=== PATIENT | female | born 1945 | race Caucasian/White ===

== ENCOUNTER → 2016-12-17 | Outpatient (REF) | payer MEDICARE, OTHER, MEDICAID ==
[2016-12-17 12:36] LABS: BASO # 0.1 10^3/uL (0.0-0.2); BASO % 0.8 % (0.0-1.0); EOS # 0.3 10^3/uL (0.0-0.50); EOS % 3.3 % (0.0-3.0); IMMATURE GRANULOCYTE % 0.3 % (0-0); LYMPH # 1.9 10^3/uL (1.5-4.5); LYMPH % 23.6 % (24.0-44.0); MEAN CORPUSCULAR HEMOGLOBIN 28.4 pg (27.0-33.0); MEAN CORPUSCULAR HGB CONC 31.7 g/dl (32.0-36.5); MEAN CORPUSCULAR VOLUME 89.5 fl (80.0-96.0); MONO # 0.7 10^3/uL (0.0-0.8); MONO % 8.6 % (0.0-5.0); NEUTROPHILS % 63.4 % (36.0-66.0); PLATELET COUNT, AUTOMATED 252 10^3/uL (150-450); RED CELL DISTRIBUTION WIDTH 13.1 % (11.5-14.5); WHITE BLOOD COUNT 7.9 10^3/uL (4.0-10.0)
[2016-12-17 12:48] LABS: ALBUMIN 3.7 GM/DL (3.2-5.2); ALBUMIN/GLOBULIN RATIO 0.97 (1.00-1.93); ALKALINE PHOSPHATASE 78 U/L (45-117); ALT/SGPT 22 U/L (12-78); ANION GAP 5 MEQ/L (8-16); AST/SGOT 17 U/L (15-37); BILIRUBIN,TOTAL 0.7 MG/DL (0.2-1.0); BLOOD UREA NITROGEN 11 MG/DL (7-18); CALCIUM LEVEL 9.1 MG/DL (8.8-10.2); CARBON DIOXIDE LEVEL 32 MEQ/L (21-32); CHLORIDE LEVEL 104 MEQ/L (98-107); CREATININE FOR GFR 0.55 MG/DL (0.55-1.02); GLOMERULAR FILTRATION RATE > 60.0 (>39); GLUCOSE, FASTING 88 MG/DL (83-110); POTASSIUM SERUM 4.2 MEQ/L (3.5-5.1); SODIUM LEVEL 141 MEQ/L (136-145); TOTAL PROTEIN 7.5 GM/DL (6.4-8.2)
== END ==
LOC: M SFHCPLAZ 08:38
PROVIDERS: ATTEND Obstetrics & Gynecology
DX: Z00.00 Encounter for general adult medical examination without abnormal findings (principal); Z79.899 Other long term (current) drug therapy

== ENCOUNTER → 2017-01-06 | Outpatient (CLI) | payer MEDICARE, OTHER, MEDICAID ==
--- NOTE | 2017-01-06 09:16 | REP ---
BILATERAL SCREENING DIGITAL MAMMOGRAM: There are no palpable abnormalities or other breast complaints. The patient states that she/he has not had a clinical breast exam in over a year. COMPARISON: 09/28/2011 There is mildly dense heterogeneous breast parenchyma that could obscure a lesion. There are benign calcifications. There has been no interval development of masses, areas of structural distortion or clusters of microcalcifications typical of malignancy. IMPRESSION: There is no evidence of malignancy. BIRADS category 2 benign findings. The patient should have a repeat mammogram in 1 year. BI-RADS/ACR category 2 mammogram. Benign findings. This mammogram was interpreted with the aid of an FDA-approved computer-aided detection system. A. Negative x-ray reports should not delay biopsy if a dominant or clinically suspicious mass is present. B. Not all breast cancers are not identified by x-ray. C. Adenosis and dense breasts may obscure an underlying neoplasm. Patient letter M1
== END ==
LOC: M WHC 07:51
PROVIDERS: ATTEND Family Medicine
DX: Z12.31 Encounter for screening mammogram for malignant neoplasm of breast (principal)

== ENCOUNTER → 2017-12-27 | Outpatient (CLI) | payer MEDICARE, OTHER, MEDICAID | LOC: M WHC 10:39 | DX: Z12.31 Encounter for screening mammogram for malignant neoplasm of breast (principal); Z78.0 Asymptomatic menopausal state | CPT/HCPCS: 77067 ==

== ENCOUNTER 2019-01-15 14:28 | Emergency (ER) | payer MEDICARE, MEDICAID ==
[~2019-01-15] VITALS: Ht 160 cm; Wt 71.7 kg
[2019-01-15] MEDS ORDERED: TIMO0.5S29 (14:37)
[2019-01-15] MEDS ORDERED: REST0.05 (14:37)
--- NOTE | 2019-01-15 15:29 | REP ---
Right scapula: Two views. History: Injury in a fall. No comparison radiographs. Findings: There is moderate osteoarthritic hypertrophy at the acromioclavicular joint. Mild spurring is seen in the glenohumeral articulation. Glenohumeral and acromioclavicular joints are normally aligned. No scapular or clavicular or humeral fracture is seen. There are however rib fractures on the right posteriorly involving rib numbers 4, 5, 6, and 7. The 6th and 7th rib fractures appear to be old. The 4th and 5th rib fractures are indeterminate. This should be correlated with clinical signs and symptoms and areas of tenderness. Impression: No scapular or shoulder fracture seen. Acromioclavicular osteoarthritis. Rib fractures including right 4th-7th ribs. Right 6th and 7th rib fractures have a old appearance. I cannot exclude acute 4th and 5th right posterolateral rib fractures. Correlate with areas of tenderness. Electronically Signed by Curly Monte MD 01/15/2019 06:51 P
[2019-01-15] MEDS ORDERED: NORC1TAB7 PO (16:49)
[2019-01-15 16:55] VITALS: BP 147/73
== END 2019-01-15 16:58 | disposition home or self-care (01) ==
LOC: M ED 14:28
DX: S22.41XA Multiple fractures of ribs, right side, initial encounter for closed fracture (principal); W10.8XXA Fall (on) (from) other stairs and steps, initial encounter; Y92.89 Other specified places as the place of occurrence of the external cause; Z79.899 Other long term (current) drug therapy

== ENCOUNTER → 2019-02-23 | Outpatient (CLI) | payer MEDICARE, OTHER, MEDICAID ==
[~2019-02-23] MED LIST: NORC1TAB7 PO; REST0.05; TIMO0.5S29
--- NOTE | 2019-02-23 12:09 | REPMRS ---
Patient History The patient states she has not had a clinical breast exam in over a year. No known family history of cancer. No Hormone Replacement Therapy 3D TOMOSYNTHESIS WAS PERFORMED. [facility] lifetime risk for [facility] 4.4%. Digital Woman Screen Mammo: February 23, 2019 - Exam #: [id number] Bilateral CC and MLO view(s) were taken. Technologist: Chelle Jiménez, Technologist Prior study comparison: December 27, 2017, bilateral digital woman screen mammo performed at [facility]. January 06, 2017, digital woman screen mammo performed at [facility]. FINDINGS: There are scattered fibroglandular densities. There has been no change in the appearance of the mammogram from the prior studies. There is a mild amount of residual fibroglandular tissue which is fairly symmetric. There is no interval development of dominant mass, architectural distortion, or clustered microcalcification suggestive of malignancy. Assessment: BI-RADS/ACR category 1 mammogram. Negative Mammogram. Recommendation Routine screening mammogram in 1 year (for women over age 40). This mammogram was interpreted with the aid of an FDA-approved computer-aided dectection system. Electronically Signed By: Cj Croft MD 02/23/19 [id number]
== END ==
LOC: M WHC 10:44
PROVIDERS: ATTEND Obstetrics & Gynecology
DX: Z12.31 Encounter for screening mammogram for malignant neoplasm of breast (principal)

== ENCOUNTER → 2021-02-19 | Outpatient (CLI) | payer MEDICARE, MEDICAID ==
[2021-02-19 17:12] LABS: BASO # 0.1 10^3/uL (0.0-0.2); EOS # 0.3 10^3/uL (0.0-0.5); EOS % 3.3 % (0.0-3.0); LYMPH # 2.1 10^3/uL (1.5-5.0); LYMPH % 24.2 % (24.0-44.0); MEAN CORPUSCULAR HEMOGLOBIN 27.6 pg (27.0-33.0); MEAN CORPUSCULAR HGB CONC 31.1 g/dl (32.0-36.5); MEAN CORPUSCULAR VOLUME 88.8 fl (80.0-96.0); MONO # 0.8 10^3/uL (0.0-0.8); MONO % 9.6 % (2.0-8.0); NEUTROPHILS # 5.3 10^3/uL (1.5-8.5); NEUTROPHILS % 61.6 % (36.0-66.0); PLATELET COUNT, AUTOMATED 239 10^3/uL (150-450); RED BLOOD COUNT 5.07 10^6/uL (4.00-5.40); WHITE BLOOD COUNT 8.7 10^3/uL (4.0-10.0)
[2021-02-19 17:15] LABS: HEMOGLOBIN A1c 5.7 %
[2021-02-19 17:21] LABS: ALBUMIN 3.5 GM/DL (3.2-5.2); ALT/SGPT 20 U/L (12-78); BILIRUBIN,TOTAL 0.5 MG/DL (0.2-1.0); BLOOD UREA NITROGEN 17 MG/DL (7-18); CALCIUM LEVEL 10.1 MG/DL (8.8-10.2); CARBON DIOXIDE LEVEL 32 MEQ/L (21-32); CHLORIDE LEVEL 107 MEQ/L (98-107); CHOLESTEROL LEVEL 238 MG/DL (<200); GLOMERULAR FILTRATION RATE > 60.0 (>39); GLUCOSE, FASTING 108 MG/DL (70-100); HDL CHOLESTEROL 35 MG/DL (>40); LDL CHOLESTEROL 137 MG/DL (<100); NON-HDL-C 203 MG/DL; POTASSIUM SERUM 4.4 MEQ/L (3.5-5.1); SODIUM LEVEL 143 MEQ/L (136-145); TOTAL PROTEIN 7.7 GM/DL (6.4-8.2); TRIGLYCERIDES LEVEL 332 MG/DL (<150)
[2021-02-19 17:32] LABS: TOTAL 25(OH) VITAMIN D 29.6 NG/ML (30.0-100.0)
== END ==
LOC: M PLALAB 14:24
PROVIDERS: ATTEND Student in an Organized Health Care Education/Training Program
DX: M16.11 Unilateral primary osteoarthritis, right hip (principal); M25.551 Pain in right hip; Z79.899 Other long term (current) drug therapy

== ENCOUNTER → 2022-02-25 | Outpatient (CLI) | payer MEDICARE, MEDICAID ==
[2022-02-25 13:35] LABS: BASO # 0.1 10^3/uL (0.0-0.2); BASO % 0.8 % (0.0-1.0); EOS # 0.3 10^3/uL (0.0-0.5); HEMATOCRIT 46.7 % (36.0-47.0); HEMOGLOBIN 14.3 g/dl (12.0-15.5); LYMPH # 1.6 10^3/uL (1.5-5.0); LYMPH % 18.3 % (24.0-44.0); MEAN CORPUSCULAR HEMOGLOBIN 27.7 pg (27.0-33.0); MEAN CORPUSCULAR HGB CONC 30.6 g/dl (32.0-36.5); MEAN CORPUSCULAR VOLUME 90.5 fl (80.0-96.0); MONO # 0.7 10^3/uL (0.0-0.8); MONO % 8.1 % (2.0-8.0); NEUTROPHILS % 69.3 % (36.0-66.0); PLATELET COUNT, AUTOMATED 231 10^3/uL (150-450); RED BLOOD COUNT 5.16 10^6/uL (4.00-5.40); WHITE BLOOD COUNT 8.6 10^3/uL (4.0-10.0)
[2022-02-25 14:08] LABS: ALBUMIN 3.5 G/DL (3.2-5.2); ALKALINE PHOSPHATASE 79 U/L (46-116); ALT/SGPT 16 U/L (7.0-40); AST/SGOT 19 U/L (<34); BILIRUBIN,TOTAL 0.8 MG/DL (0.3-1.2); BLOOD UREA NITROGEN 15 MG/DL (9-23); CALCIUM LEVEL 9.2 MG/DL (8.3-10.6); CARBON DIOXIDE LEVEL 31 MMOL/L (20-31); CHLORIDE LEVEL 103 MMOL/L (98-107); CHOLESTEROL LEVEL 235 MG/DL (<200); CHOLESTEROL RISK RATIO 5.52 (<5); CREATININE FOR GFR 0.58 MG/DL (0.55-1.30); GLOMERULAR FILTRATION RATE > 60.0 (>39); GLUCOSE, FASTING 89 MG/DL (74-106); HDL CHOLESTEROL 42.5 MG/DL (>40); LDL CHOLESTEROL 152.7 MG/DL (<100); NON-HDL-C 193 MG/DL; POTASSIUM SERUM 4.3 MMOL/L (3.5-5.1); SODIUM LEVEL 140 MMOL/L (136-145); TOTAL PROTEIN 7.4 G/DL (5.7-8.2); TRIGLYCERIDES LEVEL 199 MG/DL (<150)
== END ==
LOC: M PLALAB 10:39
PROVIDERS: ATTEND Student in an Organized Health Care Education/Training Program
DX: Z00.00 Encounter for general adult medical examination without abnormal findings (principal)

== ENCOUNTER → 2023-09-13 | Outpatient (CLI) | payer MEDICARE, MEDICAID ==
[~2023-09-13] MED LIST changes: +TIMO0.5S20; -TIMO0.5S29
[2023-09-13 13:54] LABS: BASO # 0.1 10^3/uL (0.0-0.2); EOS # 0.2 10^3/uL (0.0-0.5); EOS % 3.5 % (0.0-3.0); HEMATOCRIT 47.2 % (36.0-47.0); LYMPH # 1.6 10^3/uL (1.5-5.0); LYMPH % 23.6 % (24.0-44.0); MEAN CORPUSCULAR HGB CONC 31.8 g/dl (32.0-36.5); MEAN CORPUSCULAR VOLUME 88.2 fl (80.0-96.0); MONO # 0.5 10^3/uL (0.0-0.8); NEUTROPHILS # 4.3 10^3/uL (1.5-8.5); NEUTROPHILS % 63.6 % (36.0-66.0); PLATELET COUNT, AUTOMATED 245 10^3/uL (150-450); RED BLOOD COUNT 5.35 10^6/uL (4.00-5.40); WHITE BLOOD COUNT 6.8 10^3/uL (4.0-10.0)
[2023-09-13 14:00] LABS: ALBUMIN 3.7 G/DL (3.2-5.2); ALKALINE PHOSPHATASE 82 U/L (46-116); ALT/SGPT 16 U/L (7.0-40); AST/SGOT 10 U/L (<34); BILIRUBIN,TOTAL 0.8 MG/DL (0.3-1.2); BLOOD UREA NITROGEN 16 MG/DL (9-23); CALCIUM LEVEL 9.7 MG/DL (8.3-10.6); CARBON DIOXIDE LEVEL 31 MMOL/L (20-31); CHLORIDE LEVEL 106 MMOL/L (98-107); CHOLESTEROL LEVEL 254 MG/DL (<200); CHOLESTEROL RISK RATIO 6.58 (<5); CREATININE FOR GFR 0.57 MG/DL (0.55-1.30); GLOMERULAR FILTRATION RATE > 60.0 (>39); GLUCOSE, FASTING 94 MG/DL (74-106); HDL CHOLESTEROL 38.6 MG/DL (>40); LDL CHOLESTEROL 171.8 MG/DL (<100); NON-HDL-C 215.4 MG/DL; POTASSIUM SERUM 4.4 MMOL/L (3.5-5.1); SODIUM LEVEL 140 MMOL/L (136-145); TOTAL PROTEIN 7.5 G/DL (5.7-8.2); TRIGLYCERIDES LEVEL 218 MG/DL (<150)
== END ==
LOC: M PLALAB 10:55
PROVIDERS: ATTEND Student in an Organized Health Care Education/Training Program
DX: Z00.00 Encounter for general adult medical examination without abnormal findings (principal); Z79.899 Other long term (current) drug therapy

== ENCOUNTER → 2023-12-07 | Outpatient (CLI) | payer MEDICARE, MEDICAID | LOC: M PLAIMG 12:00 | PROVIDERS: ATTEND Student in an Organized Health Care Education/Training Program | DX: M51.37 Other intervertebral disc degeneration, lumbosacral region (principal); R29.898 Other symptoms and signs involving the musculoskeletal system ==

== ENCOUNTER → 2023-12-28 | Outpatient (CLI) | payer MEDICARE, MEDICAID ==
[2023-12-28 15:35] LABS: BASO # 0.1 10^3/uL (0.0-0.2); BASO % 0.9 % (0.0-1.0); EOS # 0.2 10^3/uL (0.0-0.5); EOS % 2.4 % (0.0-3.0); HEMATOCRIT 44.9 % (36.0-47.0); HEMOGLOBIN 14.1 g/dl (12.0-15.5); LYMPH # 1.8 10^3/uL (1.5-5.0); LYMPH % 20.6 % (24.0-44.0); MEAN CORPUSCULAR HEMOGLOBIN 28.4 pg (27.0-33.0); MEAN CORPUSCULAR HGB CONC 31.4 g/dl (32.0-36.5); MEAN CORPUSCULAR VOLUME 90.3 fl (80.0-96.0); MONO # 0.8 10^3/uL (0.0-0.8); MONO % 9.1 % (2.0-8.0); NEUTROPHILS # 5.8 10^3/uL (1.5-8.5); NEUTROPHILS % 66.7 % (36.0-66.0); PLATELET COUNT, AUTOMATED 261 10^3/uL (150-450); RED BLOOD COUNT 4.97 10^6/uL (4.00-5.40); WHITE BLOOD COUNT 8.7 10^3/uL (4.0-10.0)
[2023-12-28 16:09] LABS: CPK CREATINE PHOSPHOKINASE 63 U/L (34-145)
[2023-12-28 16:11] LABS: ALBUMIN 3.6 G/DL (3.2-5.2); ALKALINE PHOSPHATASE 104 U/L (46-116); ALT/SGPT 15 U/L (7.0-40); AST/SGOT 15 U/L (<34); BILIRUBIN,TOTAL 0.8 MG/DL (0.3-1.2); BLOOD UREA NITROGEN 21 MG/DL (9-23); CALCIUM LEVEL 10.1 MG/DL (8.3-10.6); CARBON DIOXIDE LEVEL 30 MMOL/L (20-31); CHLORIDE LEVEL 110 MMOL/L (98-107); CREATININE FOR GFR 0.62 MG/DL (0.55-1.30); GLOMERULAR FILTRATION RATE > 60.0 (>32); GLUCOSE, FASTING 80 MG/DL (74-106); POTASSIUM SERUM 4.5 MMOL/L (3.5-5.1); SODIUM LEVEL 145 MMOL/L (136-145); TOTAL PROTEIN 7.5 G/DL (5.7-8.2)
== END ==
LOC: M PLALAB 13:26
PROVIDERS: ATTEND Student in an Organized Health Care Education/Training Program
DX: M62.81 Muscle weakness (generalized) (principal)

== ENCOUNTER → 2024-01-19 | Outpatient (CLI) | payer MEDICARE, MEDICAID | LOC: M RAD 09:33 | PROVIDERS: ATTEND Student in an Organized Health Care Education/Training Program | DX: M62.81 Muscle weakness (generalized) (principal) ==

== ENCOUNTER → 2024-09-20 | Outpatient (CLI) | payer MEDICARE, MEDICAID ==
[2024-09-20 10:12] LABS: BASO # 0.1 10^3/uL (0.0-0.2); BASO % 0.8 % (0.0-1.0); EOS # 0.3 10^3/uL (0.0-0.5); EOS % 3.0 % (0.0-3.0); LYMPH # 1.6 10^3/uL (1.5-5.0); LYMPH % 17.2 % (24.0-44.0); MONO # 0.7 10^3/uL (0.0-0.8); MONO % 8.0 % (2.0-8.0); NEUTROPHILS # 6.4 10^3/uL (1.5-8.5); NEUTROPHILS % 70.7 % (36.0-66.0); PLATELET COUNT, AUTOMATED 251 10^3/uL (150-450)
[2024-09-20 10:47] LABS: ALT/SGPT 16.0 U/L (7.0-40); AST/SGOT 20.0 U/L (<34); CALCIUM LEVEL 9.3 MG/DL (8.3-10.6); CARBON DIOXIDE LEVEL 26.0 MMOL/L (20-31); CHLORIDE LEVEL 109.0 MMOL/L (98-107); CHOLESTEROL LEVEL 216.0 MG/DL (<200); CHOLESTEROL RISK RATIO 5.53 (<5); CREATININE FOR GFR 0.62 MG/DL (0.55-1.30); GLOMERULAR FILTRATION RATE 90.0 (>32); LDL CHOLESTEROL 149.8 MG/DL (<100); NON-HDL-C 177.0 MG/DL; POTASSIUM SERUM 4.3 MMOL/L (3.5-5.1); SODIUM LEVEL 145.0 MMOL/L (136-145); TRIGLYCERIDES LEVEL 136.0 MG/DL (<150)
[2024-09-20 10:51] LABS: FREE T4 1.2 NG/DL (0.89-1.76)
[2024-09-20 11:03] LABS: ESTIMATED AVERAGE GLUCOSE 114.0 MG/DL (60-110)
== END ==
LOC: M PLALAB 08:56
PROVIDERS: ATTEND Student in an Organized Health Care Education/Training Program
DX: Z00.00 Encounter for general adult medical examination without abnormal findings (principal); E78.00 Pure hypercholesterolemia, unspecified

== ENCOUNTER 2024-11-01 06:56 | Observation (INO) | payer MEDICARE, MEDICAID ==
[~2024-11-01] VITALS: Ht 160 cm; Wt 63.8 kg
[~2024-11-01 06:56] MED LIST changes: -TIMO0.5S20; +TIMO0.5S20 OU
[2024-11-01] MEDS: MORPHINE 2 MG/ML 1 ML VIAL IV ONE ×2 (07:34→09:34)
[2024-11-01 08:02] LABS: BASO # 0.0 10^3/uL (0.0-0.2); BASO % 0.4 % (0.0-1.0); EOS # 0.0 10^3/uL (0.0-0.5); EOS % 0.4 % (0.0-3.0); LYMPH # 1.2 10^3/uL (1.5-5.0); LYMPH % 12.0 % (24.0-44.0); MONO # 0.8 10^3/uL (0.0-0.8); MONO % 8.1 % (2.0-8.0); NEUTROPHILS # 8.0 10^3/uL (1.5-8.5); NEUTROPHILS % 78.5 % (36.0-66.0); PLATELET COUNT, AUTOMATED 376 10^3/uL (150-450)
[2024-11-01] MEDS ORDERED: HOME MED LIST COMPLETE! XX SCH (08:40)
[2024-11-01 08:45] LABS: ALT/SGPT 24 U/L (7.0-40); AST/SGOT 31 U/L (<34); CALCIUM LEVEL 9.3 MG/DL (8.3-10.6); CARBON DIOXIDE LEVEL 23 MMOL/L (20-31); CHLORIDE LEVEL 110 MMOL/L (98-107); CREATININE FOR GFR 0.57 MG/DL (0.55-1.30); GLOMERULAR FILTRATION RATE > 90.0 (>32); POTASSIUM SERUM 4.2 MMOL/L (3.5-5.1); SODIUM LEVEL 148 MMOL/L (136-145)
[2024-11-01] MEDS: MELOXICAM 7.5 MG TAB PO SCH (15:14)
[2024-11-01] MEDS: ENOXAPARIN 40 MG/0.4 ML SYRINGE (J1650 PER 10MG) SC SCH (15:14)
[2024-11-01 15:30] LABS: C REACTIVE PROTEIN QUANTITATIV 7.82 MG/DL (<1.0)
[2024-11-01 15:52] LABS: RHEUMATOID FACTOR QUANT 6.1 IU/ML (<14)
[2024-11-01 17:15] VITALS: BP 150/85; TEMP 97.7; O2SAT 99
[2024-11-01 22:23] VITALS: BP 145/81; TEMP 97.2; O2SAT 96
[2024-11-02] MEDS: NYSTATIN 100,000 UNITS/GM TOPICAL PWD 15 GM TOP SCH (00:06)
[2024-11-02] MEDS: LIDOCAINE 5% PATCH TD PRN (00:07)
[2024-11-02] MEDS: ACETAMINOPHEN 500 MG TAB PO PRN (00:11)
[2024-11-02 05:05] VITALS: BP 158/82; TEMP 97.5; O2SAT 98
[2024-11-02 05:10] VITALS: BP 152/80
[2024-11-02 06:30] LABS: PLATELET COUNT, AUTOMATED 344 10^3/uL (150-450)
[2024-11-02 06:54] LABS: CALCIUM LEVEL 8.6 MG/DL (8.3-10.6); CARBON DIOXIDE LEVEL 26 MMOL/L (20-31); CHLORIDE LEVEL 109 MMOL/L (98-107); CREATININE FOR GFR 0.60 MG/DL (0.55-1.30); GLOMERULAR FILTRATION RATE > 90.0 (>32); POTASSIUM SERUM 3.5 MMOL/L (3.5-5.1); SODIUM LEVEL 148 MMOL/L (136-145)
[2024-11-02 08:00] VITALS: BP_SYST 147; TEMP 97.2; O2SAT 97
[2024-11-02 12:00] VITALS: BP 147/84; TEMP 97.2; O2SAT 97
[2024-11-02 20:16] VITALS: BP 137/73; TEMP 97.3; O2SAT 96
[2024-11-03 04:10] VITALS: BP 130/71; TEMP 96.8; O2SAT 97
[2024-11-03 04:54] LABS: APPEARANCE, URINE CLOUDY (CLEAR); BACTERIA, URINE AUTO NEGATIVE (NEGATIVE); BILIRUBIN, URINE AUTO NEGATIVE (NEGATIVE); BLOOD, URINE BLOOD 1+ (NEGATIVE); GLUCOSE, URINE (UA) AUTO NEGATIVE (NEGATIVE); KETONE, URINE AUTO NEGATIVE (NEGATIVE); LEUKOCYTE ESTERASE, URINE AUTO 3+ (NEGATIVE); MUCUS, URINE SMALL (NEGATIVE); NITRITE, URINE AUTO NEGATIVE (NEGATIVE); PROTEIN, URINE AUTO NEGATIVE (NEGATIVE); RBC, URINE AUTO 20 /HPF (0-3); SPECIFIC GRAVITY URINE AUTO 1.016 (1.002-1.035); SQUAMOUS EPITHELIAL CELL UR AU 4 /HPF (0-6); UROBILINOGEN, URINE AUTO 0.2 mg/dL (0.0-2.0); WBC, URINE AUTO TNTC /HPF (0-3)
[2024-11-03 06:44] LABS: PLATELET COUNT, AUTOMATED 321 10^3/uL (150-450)
[2024-11-03 07:16] LABS: C REACTIVE PROTEIN QUANTITATIV 7.61 MG/DL (<1.0); CALCIUM LEVEL 8.8 MG/DL (8.3-10.6); CARBON DIOXIDE LEVEL 26 MMOL/L (20-31); CHLORIDE LEVEL 114 MMOL/L (98-107); CREATININE FOR GFR 0.58 MG/DL (0.55-1.30); GLOMERULAR FILTRATION RATE > 90.0 (>32); MAGNESIUM LEVEL 1.9 MG/DL (1.8-2.4); POTASSIUM SERUM 3.4 MMOL/L (3.5-5.1); SODIUM LEVEL 151 MMOL/L (136-145)
[2024-11-03] MEDS: POTASSIUM CHLORIDE 10MEQ SR TABLET PO SCH (10:43)
[2024-11-03 12:00] VITALS: BP 115/64; TEMP 97.3; O2SAT 96
[2024-11-03 19:58] VITALS: TEMP 97.3; O2SAT 99
[2024-11-03 20:58] VITALS: BP 138/74
[2024-11-03] MEDS: ACETAMINOPHEN 325 MG TAB PO PRN (22:42)
[2024-11-04 03:54] VITALS: BP 135/74; TEMP 97; O2SAT 97
[2024-11-04 06:41] LABS: PLATELET COUNT, AUTOMATED 324 10^3/uL (150-450)
[2024-11-04 07:16] LABS: CALCIUM LEVEL 8.6 MG/DL (8.3-10.6); CARBON DIOXIDE LEVEL 26 MMOL/L (20-31); CHLORIDE LEVEL 111 MMOL/L (98-107); CREATININE FOR GFR 0.54 MG/DL (0.55-1.30); GLOMERULAR FILTRATION RATE > 90.0 (>32); POTASSIUM SERUM 4.1 MMOL/L (3.5-5.1); SODIUM LEVEL 148 MMOL/L (136-145)
[2024-11-04 12:00] VITALS: BP 120/73; TEMP 97.5; O2SAT 97
[2024-11-04] MEDS ORDERED: MELO15TA28 PO (12:15)
[2024-11-05 14:59] LABS: LYME TOTAL ANTIBODY CIA <= 0.90 Index (<=0.90)
== END 2024-11-04 14:50 | disposition home health service (06) ==
LOC: EDBD 06:56 → M ED 06:56 → M ED INP 06:57 → M MSPAV 17:15
PROVIDERS: ADMIT Family Medicine; ATTEND Family Medicine
DX: M17.12 Unilateral primary osteoarthritis, left knee (principal); M25.462 Effusion, left knee; M25.562 Pain in left knee; M79.662 Pain in left lower leg; R26.89 Other abnormalities of gait and mobility; M25.552 Pain in left hip; M25.551 Pain in right hip; G89.29 Other chronic pain; I83.93 Asymptomatic varicose veins of bilateral lower extremities; M16.12 Unilateral primary osteoarthritis, left hip; H40.9 Unspecified glaucoma; H20.9 Unspecified iridocyclitis; Z98.41 Cataract extraction status, right eye; Z98.42 Cataract extraction status, left eye; Z82.3 Family history of stroke; Z80.1 Family history of malignant neoplasm of trachea, bronchus and lung; Z80.49 Family history of malignant neoplasm of other genital organs; Z88.8 Allergy status to other drugs, medicaments and biological substances; Z79.899 Other long term (current) drug therapy
CPT/HCPCS: 36415; 73521; 73564; 73700; 80048; 80053; 81001; 83735; 84550; 85025; 85027; 86038; 86140; 86431; 86618; 93971; 96372; 96374; 96376; 97161; 97165; 97530; 99285; G0378; J1650

== ENCOUNTER 2024-11-12 01:21 | Emergency (ER) | payer MEDICARE, MEDICAID ==
[~2024-11-12] VITALS: Ht 160 cm; Wt 63.8 kg
[~2024-11-12 01:21] MED LIST changes: +MELO15TA28 PO
[2024-11-12] MEDS: ACETAMINOPHEN 650 MG ER TAB PO SCH (06:48)
[2024-11-12 10:00] VITALS: BP 125/67; TEMP 98; O2SAT 97
[2024-11-12] MEDS ORDERED: PRED10TA2 PO (10:06)
== END 2024-11-12 10:16 | disposition home or self-care (01) ==
LOC: M ED 01:21
DX: M17.12 Unilateral primary osteoarthritis, left knee (principal); Z88.8 Allergy status to other drugs, medicaments and biological substances; Z79.52 Long term (current) use of systemic steroids; Z79.899 Other long term (current) drug therapy

== ENCOUNTER → 2025-01-07 | Outpatient (CLI) | payer MEDICARE ==
[~2025-01-07] MED LIST changes: +PRED10TA2 PO
== END ==
LOC: M PLAIMG 10:23
PROVIDERS: ATTEND Family Medicine
DX: M25.552 Pain in left hip (principal); M16.12 Unilateral primary osteoarthritis, left hip

== ENCOUNTER 2025-01-31 03:24 | Inpatient (IN) | payer MEDICARE ==
[~2025-01-31] VITALS: Ht 160 cm; Wt 61.1 kg
[2025-01-31 05:34] LABS: AMORPHOUS SEDIMENT SMALL (NEGATIVE); APPEARANCE, URINE HAZY (CLEAR); BACTERIA, URINE AUTO NEGATIVE (NEGATIVE); BILIRUBIN, URINE AUTO NEGATIVE (NEGATIVE); BLOOD, URINE BLOOD 1+ (NEGATIVE); GLUCOSE, URINE (UA) AUTO NEGATIVE (NEGATIVE); KETONE, URINE AUTO NEGATIVE (NEGATIVE); LEUKOCYTE ESTERASE, URINE AUTO NEGATIVE (NEGATIVE); MUCUS, URINE SMALL (NEGATIVE); NITRITE, URINE AUTO NEGATIVE (NEGATIVE); PROTEIN, URINE AUTO NEGATIVE (NEGATIVE); RBC, URINE AUTO 13 /HPF (0-3); SPECIFIC GRAVITY URINE AUTO 1.012 (1.002-1.035); SQUAMOUS EPITHELIAL CELL UR AU 2 /HPF (0-6); UROBILINOGEN, URINE AUTO 0.2 mg/dL (0.0-2.0); WBC, URINE AUTO 5 /HPF (0-3)
[2025-01-31 05:35] LABS: BASO # 0.0 10^3/uL (0.0-0.2); BASO % 0.4 % (0.0-1.0); EOS # 0.2 10^3/uL (0.0-0.5); EOS % 1.7 % (0.0-3.0); LYMPH # 1.5 10^3/uL (1.5-5.0); LYMPH % 15.7 % (24.0-44.0); MONO # 0.8 10^3/uL (0.0-0.8); MONO % 8.3 % (2.0-8.0); NEUTROPHILS # 6.8 10^3/uL (1.5-8.5); NEUTROPHILS % 73.5 % (36.0-66.0); PLATELET COUNT, AUTOMATED 392 10^3/uL (150-450)
[2025-01-31 06:03] LABS: CALCIUM LEVEL 8.8 MG/DL (8.3-10.6); CARBON DIOXIDE LEVEL 22.0 MMOL/L (20-31); CHLORIDE LEVEL 109.0 MMOL/L (98-107); CREATININE FOR GFR 0.66 MG/DL (0.55-1.30); GLOMERULAR FILTRATION RATE 88.1 (>32); POTASSIUM SERUM 3.6 MMOL/L (3.5-5.1); SODIUM LEVEL 146.0 MMOL/L (136-145)
[2025-01-31] MEDS ORDERED: RAMELTEON 8 MG TAB PO PRN (08:30)
[2025-01-31] MEDS ORDERED: TRAM50TA2 PO (09:01)
[2025-01-31] MEDS ORDERED: MELO15TA28 PO (09:01)
[2025-01-31] MEDS ORDERED: HOME MED LIST COMPLETE! XX SCH (09:05)
[2025-01-31] MEDS: DOCUSATE SODIUM 100 MG CAPSULE PO SCH (09:38)
[2025-01-31] MEDS: GABAPENTIN 100 MG CAP PO SCH (09:38)
[2025-01-31] MEDS: KETOROLAC 30 MG/ML 1 ML VIAL IV SCH (09:38)
[2025-01-31] MEDS: ACETAMINOPHEN 500 MG TAB PO SCH (09:38)
[2025-01-31] MEDS ORDERED: PILL CUTTER 1 EACH XX PRN (14:15)
[2025-01-31 14:30] VITALS: BP 118/56; TEMP 97.6; O2SAT 99
[2025-01-31 20:54] VITALS: BP 121/59; TEMP 97.7; O2SAT 97
[2025-01-31] MEDS: TIMOLOL MALEATE 0.5% OPHTH SOLN 5 ML OU SCH (21:00)
[2025-01-31] MEDS: OMEPRAZOLE 20MG CAP PO SCH (21:28)
[2025-02-01 03:36] VITALS: BP 114/68; TEMP 97.1; O2SAT 97
[2025-02-01 06:21] LABS: BASO # 0.1 10^3/uL (0.0-0.2); BASO % 0.6 % (0.0-1.0); EOS # 0.4 10^3/uL (0.0-0.5); EOS % 4.3 % (0.0-3.0); LYMPH # 1.4 10^3/uL (1.5-5.0); LYMPH % 17.2 % (24.0-44.0); MONO # 0.9 10^3/uL (0.0-0.8); MONO % 10.2 % (2.0-8.0); NEUTROPHILS # 5.6 10^3/uL (1.5-8.5); NEUTROPHILS % 67.3 % (36.0-66.0); PLATELET COUNT, AUTOMATED 325 10^3/uL (150-450)
[2025-02-01 06:34] LABS: ALT/SGPT 18.0 U/L (7.0-40); AST/SGOT 20.0 U/L (<34); CALCIUM LEVEL 8.6 MG/DL (8.3-10.6); CARBON DIOXIDE LEVEL 26.0 MMOL/L (20-31); CHLORIDE LEVEL 111.0 MMOL/L (98-107); CREATININE FOR GFR 0.84 MG/DL (0.55-1.30); GLOMERULAR FILTRATION RATE 69.8 (>32); POTASSIUM SERUM 4.5 MMOL/L (3.5-5.1); SODIUM LEVEL 146.0 MMOL/L (136-145)
[2025-02-01 07:41] VITALS: BP 135/73; TEMP 98.4; O2SAT 97
[2025-02-01] MEDS: ENOXAPARIN 40 MG/0.4 ML SYRINGE (J1650 PER 10MG) SC SCH (09:08)
[2025-02-01] MEDS ORDERED: SUCRALFATE SUSP 1GM/10ML UD PO SCH (12:00)
[2025-02-01] MEDS ORDERED: ISOVUE-370 76% 100 ML VIAL As Ordered ONE (14:02)
[2025-02-01 16:23] VITALS: BP 130/68; TEMP 99.3; O2SAT 99
[2025-02-01 16:30] LABS: PLATELET COUNT, AUTOMATED 357 10^3/uL (150-450)
[2025-02-01] MEDS: SUCRALFATE SUSP 1GM/10ML UD PO SCH (18:47)
[2025-02-01] MEDS: NS (Normal Saline) 0.9% 1,000 ML IV ONE (19:05)
[2025-02-01] MEDS: PANTOPRAZOLE 40MG VIAL IV SCH (20:17)
[2025-02-01 20:36] VITALS: BP 118/58; TEMP 98.8; O2SAT 96
[2025-02-02] MEDS: traMADol 50 MG TAB PO PRN (02:29)
[2025-02-02 03:36] VITALS: BP 124/58; TEMP 100.2; O2SAT 96
[2025-02-02 03:38] VITALS: TEMP 99.3
[2025-02-02 08:09] LABS: BASO # 0.0 10^3/uL (0.0-0.2); BASO % 0.4 % (0.0-1.0); EOS # 0.4 10^3/uL (0.0-0.5); EOS % 4.2 % (0.0-3.0); LYMPH # 1.3 10^3/uL (1.5-5.0); LYMPH % 13.9 % (24.0-44.0); MONO # 0.7 10^3/uL (0.0-0.8); MONO % 7.2 % (2.0-8.0); NEUTROPHILS # 6.9 10^3/uL (1.5-8.5); NEUTROPHILS % 74.0 % (36.0-66.0); PLATELET COUNT, AUTOMATED 326 10^3/uL (150-450)
[2025-02-02 08:41] LABS: CALCIUM LEVEL 8.3 MG/DL (8.3-10.6); CARBON DIOXIDE LEVEL 23 MMOL/L (20-31); CHLORIDE LEVEL 107 MMOL/L (98-107); CREATININE FOR GFR 0.59 MG/DL (0.55-1.30); GLOMERULAR FILTRATION RATE > 90.0 (>32); POTASSIUM SERUM 4.1 MMOL/L (3.5-5.1); SODIUM LEVEL 140 MMOL/L (136-145)
[2025-02-02 12:00] VITALS: BP 120/65; TEMP 98.9; O2SAT 96
[2025-02-02 19:56] VITALS: BP 129/66; TEMP 97.2; O2SAT 96
[2025-02-02 20:18] VITALS: BP 123/58; TEMP 98.6; O2SAT 97
[2025-02-03 03:20] VITALS: BP 145/70; TEMP 98.9; O2SAT 96
[2025-02-03 06:23] LABS: BASO # 0.0 10^3/uL (0.0-0.2); BASO % 0.4 % (0.0-1.0); EOS # 0.4 10^3/uL (0.0-0.5); EOS % 5.2 % (0.0-3.0); LYMPH # 1.4 10^3/uL (1.5-5.0); LYMPH % 20.5 % (24.0-44.0); MONO # 0.7 10^3/uL (0.0-0.8); MONO % 9.6 % (2.0-8.0); NEUTROPHILS # 4.4 10^3/uL (1.5-8.5); NEUTROPHILS % 64.0 % (36.0-66.0); PLATELET COUNT, AUTOMATED 282 10^3/uL (150-450)
[2025-02-03 06:54] LABS: CALCIUM LEVEL 8.2 MG/DL (8.3-10.6); CARBON DIOXIDE LEVEL 23 MMOL/L (20-31); CHLORIDE LEVEL 109 MMOL/L (98-107); CREATININE FOR GFR 0.59 MG/DL (0.55-1.30); GLOMERULAR FILTRATION RATE > 90.0 (>32); POTASSIUM SERUM 3.9 MMOL/L (3.5-5.1); SODIUM LEVEL 141 MMOL/L (136-145)
[2025-02-03 12:00] VITALS: BP 114/58; TEMP 98.4; O2SAT 98
[2025-02-03 20:50] VITALS: BP 154/66; TEMP 98.6; O2SAT 97
[2025-02-04 05:18] VITALS: BP 154/84; TEMP 98.7; O2SAT 97
[2025-02-04 06:25] LABS: BASO # 0.0 10^3/uL (0.0-0.2); BASO % 0.3 % (0.0-1.0); EOS # 0.4 10^3/uL (0.0-0.5); EOS % 5.6 % (0.0-3.0); LYMPH # 1.3 10^3/uL (1.5-5.0); LYMPH % 18.6 % (24.0-44.0); MONO # 0.6 10^3/uL (0.0-0.8); MONO % 8.8 % (2.0-8.0); NEUTROPHILS # 4.7 10^3/uL (1.5-8.5); NEUTROPHILS % 66.3 % (36.0-66.0); PLATELET COUNT, AUTOMATED 298 10^3/uL (150-450)
[2025-02-04 06:45] LABS: CALCIUM LEVEL 7.9 MG/DL (8.3-10.6); CARBON DIOXIDE LEVEL 24 MMOL/L (20-31); CHLORIDE LEVEL 106 MMOL/L (98-107); CREATININE FOR GFR 0.53 MG/DL (0.55-1.30); GLOMERULAR FILTRATION RATE > 90.0 (>32); POTASSIUM SERUM 3.7 MMOL/L (3.5-5.1); SODIUM LEVEL 140 MMOL/L (136-145)
[2025-02-04 12:34] VITALS: BP 110/56; TEMP 98.6; O2SAT 97
[2025-02-04] MEDS: MAGNESIUM CITRATE 300 ML BTL PO ONE (14:43)
[2025-02-04 19:51] VITALS: BP 136/70; TEMP 99.2; O2SAT 98
[2025-02-04] MEDS: POLYETHYLENE GLYCOL 238 GM BOTTLE PO ONE (21:51)
[2025-02-05] VITALS (8 sets, daily range): BP systolic 117–134; BP diastolic 53–84; TEMP 98.6–99.3; O2SAT 92–99
[2025-02-05] MEDS: POLYETHYLENE GLYCOL 238 GM BOTTLE PO ONE (06:18)
[2025-02-05 06:27] LABS: BASO # 0.1 10^3/uL (0.0-0.2); BASO % 0.6 % (0.0-1.0); EOS # 0.4 10^3/uL (0.0-0.5); EOS % 5.1 % (0.0-3.0); LYMPH # 1.3 10^3/uL (1.5-5.0); LYMPH % 16.0 % (24.0-44.0); MONO # 0.7 10^3/uL (0.0-0.8); MONO % 9.0 % (2.0-8.0); NEUTROPHILS # 5.4 10^3/uL (1.5-8.5); NEUTROPHILS % 68.8 % (36.0-66.0); PLATELET COUNT, AUTOMATED 360 10^3/uL (150-450)
[2025-02-05 06:52] LABS: CALCIUM LEVEL 8.3 MG/DL (8.3-10.6); CARBON DIOXIDE LEVEL 24 MMOL/L (20-31); CHLORIDE LEVEL 105 MMOL/L (98-107); CREATININE FOR GFR 0.48 MG/DL (0.55-1.30); GLOMERULAR FILTRATION RATE > 90.0 (>32); POTASSIUM SERUM 3.7 MMOL/L (3.5-5.1); SODIUM LEVEL 140 MMOL/L (136-145)
[2025-02-05] MEDS ORDERED: LIDOCAINE 2% 100 MG/5 ML SDV (FOR ANES.) As Ordered ONE (15:58)
[2025-02-05] MEDS: SIMETHICONE 40MG/0.6ML DROPS 30ML As Ordered ONE (17:15)
[2025-02-05] MEDS: GLUCAGON INJ 1 MG VIAL As Ordered ONE (17:45)
[2025-02-06] VITALS: BP 112/52; TEMP 97.6; O2SAT 96
[2025-02-06 04:37] VITALS: BP 131/73; TEMP 99; O2SAT 98
[2025-02-06 06:28] LABS: BASO # 0.0 10^3/uL (0.0-0.2); BASO % 0.5 % (0.0-1.0); EOS # 0.4 10^3/uL (0.0-0.5); EOS % 4.4 % (0.0-3.0); LYMPH # 1.8 10^3/uL (1.5-5.0); LYMPH % 21.1 % (24.0-44.0); MONO # 0.8 10^3/uL (0.0-0.8); MONO % 9.0 % (2.0-8.0); NEUTROPHILS # 5.6 10^3/uL (1.5-8.5); NEUTROPHILS % 64.5 % (36.0-66.0); PLATELET COUNT, AUTOMATED 421 10^3/uL (150-450)
[2025-02-06 06:57] LABS: CALCIUM LEVEL 8.6 MG/DL (8.3-10.6); CARBON DIOXIDE LEVEL 24 MMOL/L (20-31); CHLORIDE LEVEL 108 MMOL/L (98-107); CREATININE FOR GFR 0.60 MG/DL (0.55-1.30); GLOMERULAR FILTRATION RATE > 90.0 (>32); POTASSIUM SERUM 3.9 MMOL/L (3.5-5.1); SODIUM LEVEL 143 MMOL/L (136-145)
[2025-02-06 08:00] VITALS: BP 127/70; TEMP 97.6; O2SAT 97
[2025-02-06] MEDS: PANTOPRAZOLE 40MG TAB PO SCH (09:34)
[2025-02-06] MEDS: IBUPROFEN 400 MG TAB PO SCH (11:15)
[2025-02-06 12:00] VITALS: BP 99/53; TEMP 98.7; O2SAT 97
[2025-02-06 16:00] VITALS: BP 127/65; TEMP 98.7; O2SAT 98
[2025-02-06] MEDS: CelecoXIB 400 MG CAP PO ONE (16:44)
[2025-02-06 19:49] VITALS: BP 138/68; TEMP 98.6; O2SAT 99
[2025-02-07 03:20] VITALS: BP 135/69; TEMP 98.5; O2SAT 99
[2025-02-07 06:43] LABS: BASO # 0.0 10^3/uL (0.0-0.2); BASO % 0.5 % (0.0-1.0); EOS # 0.4 10^3/uL (0.0-0.5); EOS % 5.6 % (0.0-3.0); LYMPH # 1.3 10^3/uL (1.5-5.0); LYMPH % 16.5 % (24.0-44.0); MONO # 0.7 10^3/uL (0.0-0.8); MONO % 8.4 % (2.0-8.0); NEUTROPHILS # 5.4 10^3/uL (1.5-8.5); NEUTROPHILS % 68.4 % (36.0-66.0); PLATELET COUNT, AUTOMATED 401 10^3/uL (150-450)
[2025-02-07 07:17] LABS: CALCIUM LEVEL 8.3 MG/DL (8.3-10.6); CARBON DIOXIDE LEVEL 25.0 MMOL/L (20-31); CHLORIDE LEVEL 106.0 MMOL/L (98-107); CREATININE FOR GFR 0.75 MG/DL (0.55-1.30); GLOMERULAR FILTRATION RATE 79.9 (>32); POTASSIUM SERUM 3.9 MMOL/L (3.5-5.1); SODIUM LEVEL 144.0 MMOL/L (136-145)
[2025-02-07 20:57] VITALS: BP_SYST 109; BP_SYST 132; BP_DIAS 55; BP_DIAS 58; TEMP 98.5; TEMP 98.7; O2SAT 95; O2SAT 99
[2025-02-08 03:50] VITALS: BP 150/88; TEMP 98.7; O2SAT 97
[2025-02-08 07:30] LABS: BASO # 0.0 10^3/uL (0.0-0.2); BASO % 0.5 % (0.0-1.0); EOS # 0.4 10^3/uL (0.0-0.5); EOS % 5.5 % (0.0-3.0); LYMPH # 1.3 10^3/uL (1.5-5.0); LYMPH % 15.9 % (24.0-44.0); MONO # 0.6 10^3/uL (0.0-0.8); MONO % 7.9 % (2.0-8.0); NEUTROPHILS # 5.5 10^3/uL (1.5-8.5); NEUTROPHILS % 69.6 % (36.0-66.0); PLATELET COUNT, AUTOMATED 340 10^3/uL (150-450)
[2025-02-08 07:55] VITALS: BP 119/58; TEMP 98.4; O2SAT 99
[2025-02-08 08:00] LABS: CALCIUM LEVEL 8.2 MG/DL (8.3-10.6); CARBON DIOXIDE LEVEL 26 MMOL/L (20-31); CHLORIDE LEVEL 107 MMOL/L (98-107); CREATININE FOR GFR 0.58 MG/DL (0.55-1.30); GLOMERULAR FILTRATION RATE > 90.0 (>32); POTASSIUM SERUM 4.1 MMOL/L (3.5-5.1); SODIUM LEVEL 143 MMOL/L (136-145)
[2025-02-08 12:00] VITALS: BP 116/82; TEMP 98.7; O2SAT 76
[2025-02-08 15:41] VITALS: BP 119/58; TEMP 98.7; O2SAT 97
[2025-02-08 19:56] VITALS: BP 156/67; TEMP 98.6; O2SAT 98
[2025-02-08 21:40] VITALS: BP 136/62
[2025-02-09 04:44] VITALS: BP 132/73; TEMP 98.5; O2SAT 100
[2025-02-09 12:00] VITALS: BP 105/55; TEMP 98.6; O2SAT 100
[2025-02-09] MEDS: DICLOFENAC EPOLAMINE 1.3% PATCH TOP SCH (12:08)
[2025-02-09 16:50] LABS: PLATELET COUNT, AUTOMATED 376 10^3/uL (150-450)
[2025-02-09 19:42] VITALS: BP 129/62; TEMP 98.3; O2SAT 100
[2025-02-10 03:43] VITALS: BP 135/67; TEMP 98.1; O2SAT 97
[2025-02-10 06:06] LABS: PLATELET COUNT, AUTOMATED 349 10^3/uL (150-450)
[2025-02-10 06:25] LABS: CALCIUM LEVEL 8.3 MG/DL (8.3-10.6); CARBON DIOXIDE LEVEL 25 MMOL/L (20-31); CHLORIDE LEVEL 106 MMOL/L (98-107); CREATININE FOR GFR 0.59 MG/DL (0.55-1.30); GLOMERULAR FILTRATION RATE > 90.0 (>32); POTASSIUM SERUM 3.8 MMOL/L (3.5-5.1); SODIUM LEVEL 142 MMOL/L (136-145)
[2025-02-10 09:00] LABS: IRON (FE) 20 UG/DL (50-170)
[2025-02-10] MEDS: FERROUS GLUCONATE 324 MG TAB PO SCH (16:38)
[2025-02-10 19:54] VITALS: BP 143/65; TEMP 98.1; O2SAT 99
[2025-02-10 20:28] VITALS: BP 142/70; TEMP 97.1; O2SAT 98
[2025-02-11 03:43] VITALS: BP 145/67; TEMP 98.9; O2SAT 95
[2025-02-11 06:50] LABS: PLATELET COUNT, AUTOMATED 386 10^3/uL (150-450)
[2025-02-11 07:15] LABS: CALCIUM LEVEL 8.3 MG/DL (8.3-10.6); CARBON DIOXIDE LEVEL 25 MMOL/L (20-31); CHLORIDE LEVEL 106 MMOL/L (98-107); CREATININE FOR GFR 0.59 MG/DL (0.55-1.30); GLOMERULAR FILTRATION RATE > 90.0 (>32); POTASSIUM SERUM 4.3 MMOL/L (3.5-5.1); SODIUM LEVEL 140 MMOL/L (136-145)
[2025-02-11 12:00] VITALS: BP 101/55; TEMP 98.7; O2SAT 97
[2025-02-12 04:22] VITALS: BP 135/65; TEMP 98.4; O2SAT 98
[2025-02-13 04:45] VITALS: BP 132/68; TEMP 98.1; O2SAT 98
[2025-02-13] MEDS ORDERED: CELE100C PO (13:44)
[2025-02-13] MEDS ORDERED: PANT40TA29 PO (13:44)
[2025-02-13] MEDS ORDERED: OXYC-517 PO ×2 (13:44)
[2025-02-13] MEDS ORDERED: RAME8TAB2 PO (13:44)
[2025-02-13] MEDS ORDERED: FERR32TA PO (13:44)
[2025-02-13] MEDS ORDERED: TRAM50TA2 PO (13:44)
[2025-02-13] MEDS ORDERED: ACET-683 PO (13:44)
[2025-02-13] MEDS ORDERED: DICL1PAT6 TOP (13:44)
[2025-02-13] MEDS ORDERED: GABA-1171 PO (13:44)
== END 2025-02-13 14:37 | DRG 553 ==
LOC: M ED 03:24 → M ED INP 08:29 → M PCU 13:21 → OBSVTOIN 02-01 13:52 → M MSPAV 02-01 16:14
PROVIDERS: ADMIT Internal Medicine Nephrology; ATTEND Internal Medicine Nephrology
PROC: 0DBH8ZX Excision of Cecum, Via Natural or Artificial Opening Endoscopic, Diagnostic (ICD-10-PCS; principal; 2025-02-05 14:45)
DX: M17.12 Unilateral primary osteoarthritis, left knee (principal); K57.31 Diverticulosis of large intestine without perforation or abscess with bleeding; D62 Acute posthemorrhagic anemia; H40.9 Unspecified glaucoma; G89.29 Other chronic pain; M25.552 Pain in left hip; R26.89 Other abnormalities of gait and mobility; M16.0 Bilateral primary osteoarthritis of hip; M25.462 Effusion, left knee; R29.6 Repeated falls; K64.8 Other hemorrhoids; D12.0 Benign neoplasm of cecum; M25.562 Pain in left knee; M79.605 Pain in left leg; M25.572 Pain in left ankle and joints of left foot; Z79.1 Long term (current) use of non-steroidal anti-inflammatories (NSAID); Z79.899 Other long term (current) drug therapy; Z88.8 Allergy status to other drugs, medicaments and biological substances; D50.9 Iron deficiency anemia, unspecified

== ENCOUNTER → 2025-02-18 | Outpatient (REF) ==
[~2025-02-18] MED LIST changes: +ACET-683 PO; +CELE100C PO; +DICL1PAT6 TOP; +FERR32TA PO; +GABA-1171 PO; +OXYC-517 PO; +PANT40TA29 PO; +RAME8TAB2 PO; +TRAM50TA2 PO
[2025-02-18 10:29] LABS: PLATELET COUNT, AUTOMATED 475 10^3/uL (150-450)
[2025-02-18 10:50] LABS: CALCIUM LEVEL 9.0 MG/DL (8.3-10.6); CARBON DIOXIDE LEVEL 24 MMOL/L (20-31); CHLORIDE LEVEL 103 MMOL/L (98-107); CREATININE FOR GFR 0.56 MG/DL (0.55-1.30); GLOMERULAR FILTRATION RATE > 90.0 (>32); POTASSIUM SERUM 4.0 MMOL/L (3.5-5.1); SODIUM LEVEL 138 MMOL/L (136-145)
== END ==
PROVIDERS: ATTEND Physician Assistant
DX: I10 Essential (primary) hypertension (principal)

== ENCOUNTER → 2025-02-25 | Outpatient (REF) ==
[2025-02-25 13:06] LABS: PLATELET COUNT, AUTOMATED 480 10^3/uL (150-450)
[2025-02-25 13:34] LABS: CALCIUM LEVEL 8.9 MG/DL (8.3-10.6); CARBON DIOXIDE LEVEL 26.0 MMOL/L (20-31); CHLORIDE LEVEL 101.0 MMOL/L (98-107); CREATININE FOR GFR 0.74 MG/DL (0.55-1.30); GLOMERULAR FILTRATION RATE 81.2 (>32); POTASSIUM SERUM 4.3 MMOL/L (3.5-5.1); SODIUM LEVEL 136.0 MMOL/L (136-145)
== END ==
PROVIDERS: ATTEND Physician Assistant
DX: I10 Essential (primary) hypertension (principal)